=== PATIENT | female | born 1975 | race Hispanic/Latino ===

== ENCOUNTER 2019-08-25 18:08 | Inpatient (IN) | payer OTHER, SELFPAY ==
[2019-08-25] MEDS ORDERED: Azithromycin 500 MG VIAL ONE (19:07)
[2019-08-25] MEDS ORDERED: Sodium Chloride 0.9% 100 ML ONE (19:07)
[2019-08-25] MEDS ORDERED: cefTRIAXone\\ROCEPHIN 2 GM VIAL ONE (19:07)
--- NOTE | 2019-08-25 21:49 | ULT ---
LIMITED ABDOMINAL ULTRASOUND 08/25/19 PROVIDED CLINICAL HISTORY: Abdominal pain, COVID rule out. FINDINGS: Multiple gallstones are demonstrated. There is gallbladder wall thickening to approximately 3 mm. No pericholecystic fluid is evident. The sheet layer documents a positive sonographic Hankins's sign. The common duct is about 5 mm. IMPRESSION: Cholelithiasis and gallbladder wall thickening with reported positive sonographic Hankins's sign. Marquis elate with concerns for acute cholecystitis. POS: LEOLA
[2019-08-25] MEDS ORDERED: HYDROcodone/Acetaminophen 5/325 mg Tablet PO PRN (22:16)
[2019-08-25] MEDS ORDERED: Acetaminophen 325 MG TAB PO PRN (22:16)
[2019-08-25 22:25] LABS: Prothrombin Time 13.6 SEC (12.0-14.7)
[2019-08-25 22:26] LABS: D-Dimer Test 1.64 *mcg/mL (0.27-0.43)
[2019-08-25 22:36] LABS: Phosphorus 2.3 mg/dL (2.3-4.7)
--- NOTE | 2019-08-25 22:38 | PDOC.FPRHP ---
- Allergies/Adverse Reactions Allergies Allergy/AdvReac Type Severity Reaction Status Date / Time No Known Drug Allergies Allergy Unverified 08/25/19 22:24 - Home Medications Medication Instructions Recorded Confirmed Type No Known 08/25/19 08/25/19 History - History PMHx: PSHx: FHx: Social: - Vital signs BP: [] HR: [] RR: [] Tmax: [] Pox: []% on [] Wt: [] FMR H&P: Upper Level - Plan Date/Time: 08/25/192236 PCP: CC- none HPI: This is a previously healthy 43 yo F with no significant PMH being admitted for COVID r/o as well as acute cholecystitis. She states she has not been able to tolerate PO for about 6 days with persistent vomiting. She denies blood in the vomit. She gets sharp pain in her RUQ which radiates to the epigastric area at time. She ahs about 2 episodes of diarrhea per day with no dark stools or blood in the stool. States she is still tolerating liquid, she is thirsty and would like some water. She states she has never had this type of pain before. Denies chest pain, denies pain radiating to her back. The patient works at [employer] and has been continuing to work, she states she has had fever for about 3-4 days Tmax at home 102. Tmax here 99.6. She states she has had sore throat for 2-3 days which has been getting worse and causing her to have a hoarse voice. She states she has had cough for 1 days. She feels achy and tired but not really short of breath. Cough is dry and non-productive. PMH: none PSH: none Meds: none Allergies: NKDA Soc Hx: denies smoking, alcohol, or drugs Fm hx: denies family hx of heart disease REVIEW OF SYSTEMS: Gen: see hpi Neuro: denies headache Eyes: no visual changes ENT: see hpi Resp: see hpi Card: denies murmurs, rubs, gallups GI: see hpi Heme: no easy bruising/bleeding, no blood thinners Skin: no rash, no erythema Vitals: BP: 128/73, Pulse: 80, Resp: 18, Temp: 99.2 (Oral), O2 sat: 95 on ( Room Air), 72kg PHYSICAL EXAMINATION: General: NAD, alert and oriented x3 HEENT: PERRLA, EOMI, normal sclera, oropharynx without erythema or exudate Neck: Supple. Full ROM. Heart/Cardiovascular System: cap refill <2 Lungs/Respiratory System: no resp distress, hoarse voice, speaking in complete sentences, no retractions Abdomen/Gastro-Intestinal System: soft, no distension, [place] +, pain in RUQ Extremities: Warm extremities. No cyanosis or edema Neuro: No gross deficits appreciated. CN 2-12 grossly intact Psychiatry: Awake, Alert and cooperative with exam Skin: No lesions, rashes, or ulcers Musculoskeletal: Full ROM A/P: # Pneumonia 2/2 possible COVID infxn with possible superimposed bacterial PNA - COVID, bcx, procal, CRP, mag, phose, ferritin, PT/INR, Urine strep pending - LA 1.7, Pulse 70-90, WBC 9.8, Lymph 19, RR 18, SIRS not met currently - CT scan shows RML consolidation, mild bilateral lower lobe consolidation - Will cover with Zosyn for possible aspiration 2/2 vomiting, cont azithro - Room air currently, will monitor, possibly early in COVID course - Gentle fluids at 75ml/hr 2/2 not tolerating much PO # Acute Cholecystitis - CT scan shows 9mm CBD, US shows wall thickening, sludge - Surgery consulted from ED, recs cholecystectomy after eval of COVID - Zosyn, pain control (avoid NSAIDs for now, COVID r/o) Fluids: LR 75 ml/hr Code: full PPx: pepcid, lovenox Dispo: anticipate 2-3 day course Addendum - Attending - Attending Attestation Date/Time: 08/25/19 2350 I personally evaluated the patient at 2345 and discussed the management with Dr. Rangel I agree with the History, Examination, Assessment and Plan documented above with any addition or exceptions noted below. 43 yo WF with 1 wk hx of N/V. inability tolerate PO intake, fever, chills, cough , SOB, and RUQ pain. Presented for evaluation at [facility]. Found to have cholecystitis clinically and on CT. CT scan concerning for RML PNA and possible bibasilar PNA, Aspiration vs viral PNA. Sent to [facility] for admission and further evaluation. RUQ US shows cholecystitis and sludge. Labs reviewed and remarkable for mild elevation of ALT, positive D-dimer, elevated procal, mild lymphopenia, elevation of ferritin. General surgery consulted in ER. COVID screen at [facility]. Admit for acute cholecystitis, RML PNA, and possible viral/COVID vs aspiration PNA. Continue azithromyocin and zosyn. Contact/airborn precautions. IV fluids and tx of nausea and pain. inpatient, medical, >2 midnights.
[2019-08-25 23:13] VITALS: BMI 30.1
[2019-08-25] MEDS: Piperacillin/Tazobactam 3.375 GM in Sodium Chloride 0.9% 100 ML IVPB SCH (23:30)
[2019-08-25] MEDS: Lactated Ringer's 1,000 ML IV SCH (23:30)
[2019-08-26] MEDS: Morphine 4 MG/ML VIAL SLOW IVP PRN (05:30)
[2019-08-26 05:31] LABS: #Basophils 0.1 thou/uL (0.0-0.2); #Eosinphils 0.1 thou/uL (0.0-0.7); #Lymphocytes 3.1 thou/uL (1.20-3.40); #Neutrophils 6.4 thou/uL (1.40-6.50); %Basophils 0.6 % (0.0-1.0); %Eosinophils 1.1 % (0.0-10.0); %Lymphocytes 29.3 % (21.0-51.0); %Monocytes 9.3 % (0.0-10.0); %Neutrophils 59.8 % (42.0-75.0); Hemoglobin 11.8 g/dL (12.0-16.0); Mean Corpuscular HGB CONC 33.8 g/dL (32.0-36.0); Mean Corpuscular Hemoglobin 31.9 pg (27.0-31.0); Mean Corpuscular Volume 94.6 fL (78.0-98.0); Mean Platelet Volume 7.8 fL (7.4-10.4); Platelet Count 241 thou/uL (130-400); RBC Distribution Width 11.3 % (11.5-14.5); White Blood Cell (WBC) Count 10.6 thou/uL (4.8-10.8)
[2019-08-26 05:51] LABS: Anion Gap 9 mmol/L (10-20); BUN (Urea Nitrogen) 14 mg/dL (7.0-18.7); Calc. Creatinine Clearance 114 mL/min (70-130); Calcium 8.4 mg/dL (7.8-10.44); Carbon Dioxide 29 mmol/L (22-29); Chloride 106 mmol/L (98-107); Estimated GFR-MDRD 86; Glucose 101 mg/dL (70-105); Potassium 4.4 mmol/L (3.5-5.1); Sodium 140 mmol/L (136-145)
[2019-08-26] MEDS: Piperacillin/Tazobactam 3.375 GM in Sodium Chloride 0.9% 100 ML IVPB SCH ×3 (06:12→17:14)
[2019-08-26 07:26] LABS: Strep pneumo Urine Ag NEGATIVE (NEGATIVE)
[2019-08-26] MEDS: Famotidine/PF 20 mg/2ml Vial SLOW IVP SCH ×2 (07:40→20:55)
[2019-08-26] MEDS: Azithromycin 250 MG TAB PO SCH (07:40)
[2019-08-26] MEDS: Enoxaparin Sodium 40 MG/0.4 ML SYRINGE SC SCH (07:40)
[2019-08-26] MEDS: Ondansetron PF 4 MG/2 ML Vial IVP PRN ×2 (08:13→17:35)
--- NOTE | 2019-08-26 09:08 | PDOC.FM ---
- Subjective Subjective: pt feels the same as last night. stomach pain stable. cough stable, no SOB - Objective Vital Signs & Weight: Vital Signs (12 hours) Temp Pulse Resp BP BP Pulse Ox 08/26/19 08:00 97 08/26/19 07:40 97.4 F L 54 L 18 115/71 97 08/26/19 04:00 98.7 F 69 17 129/75 99 08/25/19 23:10 98.3 F 66 18 123/81 96 08/25/19 22:39 96 Weight Weight 72.348 kg Result Diagrams: 08/26/19 05:15 08/26/19 05:15 Phys Exam - Physical Examination Constitutional: NAD HEENT: moist MMs, sclera anicteric Neck: supple, full ROM Respiratory: no wheezing, clear to auscultation bilateral Cardiovascular: RRR, no significant murmur Gastrointestinal: soft RUQ ttp Musculoskeletal: pulses present Neurological: normal sensation, moves all 4 limbs Psychiatric: normal affect, A&O x 3 Skin: no rash, normal turgor Dx/Plan (1) Cholecystitis Code(s): K81.9 - CHOLECYSTITIS, UNSPECIFIED Status: Acute (2) Respiratory disease Code(s): J98.9 - RESPIRATORY DISORDER, UNSPECIFIED Status: Acute - Plan Plan: Pneumonia 2/2 possible COVID infxn with possible superimposed bacterial PNA A-stable. covid pending. SIRS criteria not met. CT scan shows RML consolidation , mild bilateral lower lobe consolidation P- zosyn and azithro -Gentle fluids at 75ml/hr 2/2 not tolerating much PO -f/u BCx -O2 as needed Acute Cholecystitis A- CT scan shows 9mm CBD, US shows wall thickening, sludge. Surgery consulted from ED, recs cholecystectomy after eval of COVID P- Zosyn, pain control (avoid NSAIDs for now, COVID r/o) Fluids: LR 75 ml/hr Code: full PPx: pepcid, lovenox
--- NOTE | 2019-08-26 11:39 | CON ---
DATE OF CONSULTATION: CHIEF COMPLAINT: Dyspnea. HISTORY OF PRESENT ILLNESS: The patient is a 43-year-old female, who has been having some nausea and vomiting, some epigastric pain and diarrhea. She has been having fever and dyspnea with cough. PAST MEDICAL HISTORY: Unremarkable. PAST SURGICAL HISTORY: None. MEDICATIONS: No medications. ALLERGIES: NO KNOWN DRUG ALLERGIES. ASSESSMENT: There is a high suspicion that this patient has COVID-19 due to imaging and symptoms. She has a normal white count. Her CT scan shows some wall thickening. PLAN: Await the COVID testing. If she is very symptomatic, I would recommend cholecystostomy tube. However, if she is cleared from COVID, then we can do a laparoscopic cholecystectomy. If not, we will treat with antibiotics and if she does not respond, then cholecystostomy tube. Job ID: [id number]
[2019-08-26] MEDS: Lactated Ringer's 1,000 ML IV SCH (12:00)
[2019-08-27] MEDS: Lactated Ringer's 1,000 ML IV SCH (00:38)
[2019-08-27] MEDS: Piperacillin/Tazobactam 3.375 GM in Sodium Chloride 0.9% 100 ML IVPB SCH ×4 (00:38→17:02)
[2019-08-27 06:53] LABS: #Basophils 0.1 thou/uL (0.0-0.2); #Eosinphils 0.2 thou/uL (0.0-0.7); #Lymphocytes 3.4 thou/uL (1.20-3.40); #Monocytes 0.7 thou/uL (0.11-0.59); #Neutrophils 5.2 thou/uL (1.40-6.50); %Basophils 0.6 % (0.0-1.0); %Eosinophils 2.4 % (0.0-10.0); %Lymphocytes 35.5 % (21.0-51.0); %Monocytes 7.2 % (0.0-10.0); %Neutrophils 54.4 % (42.0-75.0); Hemoglobin 10.9 g/dL (12.0-16.0); Mean Corpuscular HGB CONC 33.2 g/dL (32.0-36.0); Mean Corpuscular Volume 93.3 fL (78.0-98.0); Mean Platelet Volume 7.8 fL (7.4-10.4); Platelet Count 257 thou/uL (130-400); RBC Distribution Width 11.2 % (11.5-14.5); Red Blood Cell (RBC) Count 3.52 mill/uL (4.20-5.40); White Blood Cell (WBC) Count 9.6 thou/uL (4.8-10.8)
[2019-08-27 07:25] LABS: ALT (SGPT) 74 U/L (8-55); AST (SGOT) 58 U/L (5-34); Albumin 2.9 g/dL (3.5-5.0); Alkaline Phosphatase 124 U/L (40-110); Anion Gap 11 mmol/L (10-20); BUN (Urea Nitrogen) 8 mg/dL (7.0-18.7); Bilirubin, Total 0.5 mg/dL (0.2-1.2); CRP (Inflammatory) 4.97 mg/dL (= or < 0.5); Calc. Creatinine Clearance 114 mL/min (70-130); Calcium 8.7 mg/dL (7.8-10.44); Carbon Dioxide 28 mmol/L (22-29); Chloride 105 mmol/L (98-107); Estimated GFR-MDRD 86; Glucose 100 mg/dL (70-105); Phosphorus 3.6 mg/dL (2.3-4.7); Potassium 3.5 mmol/L (3.5-5.1); Protein, Total 5.9 g/dL (6.0-8.3); Sodium 140 mmol/L (136-145)
[2019-08-27] MEDS: Enoxaparin Sodium 40 MG/0.4 ML SYRINGE SC SCH (08:59)
[2019-08-27] MEDS: Famotidine/PF 20 mg/2ml Vial SLOW IVP SCH ×2 (08:59→21:07)
[2019-08-27] MEDS: Azithromycin 250 MG TAB PO SCH (08:59)
--- NOTE | 2019-08-27 09:24 | PRG ---
DATE OF SERVICE: 08/27/2019 SUBJECTIVE: The patient is still under suspicion of COVID-19 infection. I spoke to the nurse. She is feeling pretty good. She is no longer vomiting. She is tolerating diet. OBJECTIVE: VITAL SIGNS: Her temperature is 97.6, pulse 58, and blood pressure 108/60. ASSESSMENT: Cholelithiasis with suspected COVID pneumonia. PLAN: Await test results. If the COVID-19 results are negative, we will require laparoscopic cholecystectomy with cholangiogram. If they are positive, depending on symptoms, may require a cholecystostomy tube. Job ID: [id number]
--- NOTE | 2019-08-27 09:51 | PDOC.FM ---
- Subjective Subjective: doing well, n/v is almost resolved, abdominal pain improved as well. no new complaints - Objective Vital Signs & Weight: Vital Signs (12 hours) Temp Pulse Resp BP Pulse Ox 08/27/19 05:36 97.6 F 58 L 18 108/60 95 08/27/19 01:00 97.8 F 68 16 98/64 96 Weight Weight 72.348 kg I&O: 08/26/19 08/27/19 08/28/19 06:59 06:59 06:59 Intake Total 2014 Output Total 1000 Balance 1015 Result Diagrams: 08/27/19 06:11 08/27/19 06:11 Phys Exam - Physical Examination Constitutional: NAD HEENT: moist MMs, sclera anicteric Neck: supple, full ROM Respiratory: no wheezing, clear to auscultation bilateral Cardiovascular: RRR, no significant murmur Gastrointestinal: soft, non-tender Musculoskeletal: no edema, pulses present Neurological: normal sensation, moves all 4 limbs Psychiatric: normal affect, A&O x 3 Skin: no rash, normal turgor Dx/Plan (1) Cholecystitis Code(s): K81.9 - CHOLECYSTITIS, UNSPECIFIED Status: Acute (2) Respiratory disease Code(s): J98.9 - RESPIRATORY DISORDER, UNSPECIFIED Status: Acute - Plan Plan: Pneumonia 2/2 possible COVID infxn with possible superimposed bacterial PNA A-stable. covid pending. SIRS criteria not met. CT scan shows RML consolidation , mild bilateral lower lobe consolidation. Fever since 4/3, cough since 4/6 P- zosyn and azithro -Gentle fluids at 75ml/hr 2/2 not tolerating much PO. will wean as tolerated -f/u BCx -O2 as needed Acute Cholecystitis A- CT scan shows 9mm CBD, US shows wall thickening, sludge. Surgery consulted. likely will have it taken out outpt P- Zosyn, pain control (avoid NSAIDs for now, COVID r/o) Fluids: LR 75 ml/hr Code: full PPx: pepcid, lovenox
[2019-08-27] MEDS: Ondansetron PF 4 MG/2 ML Vial IVP PRN ×2 (10:10→19:31)
[2019-08-27] MEDS: Morphine 4 MG/ML VIAL SLOW IVP PRN ×2 (10:16→17:48)
[2019-08-27] MEDS: Ondansetron ODT 4 MG TAB PO PRN (21:08)
[2019-08-28] MEDS: Piperacillin/Tazobactam 3.375 GM in Sodium Chloride 0.9% 100 ML IVPB SCH ×5 (00:55→23:54)
[2019-08-28] MEDS: Morphine 4 MG/ML VIAL SLOW IVP PRN ×2 (02:15→06:38)
[2019-08-28 07:25] LABS: #Basophils 0.2 thou/uL (0.0-0.2); #Eosinphils 0.3 thou/uL (0.0-0.7); #Lymphocytes 4.1 thou/uL (1.20-3.40); #Monocytes 0.6 thou/uL (0.11-0.59); #Neutrophils 4.1 thou/uL (1.40-6.50); %Basophils 2.3 % (0.0-1.0); %Eosinophils 3.6 % (0.0-10.0); %Lymphocytes 43.7 % (21.0-51.0); %Monocytes 6.3 % (0.0-10.0); %Neutrophils 44.1 % (42.0-75.0); Hemoglobin 11.6 g/dL (12.0-16.0); Mean Corpuscular HGB CONC 34.6 g/dL (32.0-36.0); Mean Corpuscular Hemoglobin 32.3 pg (27.0-31.0); Mean Corpuscular Volume 93.4 fL (78.0-98.0); Mean Platelet Volume 7.4 fL (7.4-10.4); Platelet Count 288 thou/uL (130-400); RBC Distribution Width 11.2 % (11.5-14.5); Red Blood Cell (RBC) Count 3.59 mill/uL (4.20-5.40); White Blood Cell (WBC) Count 9.4 thou/uL (4.8-10.8)
[2019-08-28 07:46] LABS: ALT (SGPT) 49 U/L (8-55); AST (SGOT) 16 U/L (5-34); Alkaline Phosphatase 98 U/L (40-110); Anion Gap 11 mmol/L (10-20); BUN (Urea Nitrogen) 5 mg/dL (7.0-18.7); Bilirubin, Total 0.4 mg/dL (0.2-1.2); Calc. Creatinine Clearance 117 mL/min (70-130); Calcium 8.8 mg/dL (7.8-10.44); Carbon Dioxide 31 mmol/L (22-29); Chloride 101 mmol/L (98-107); Estimated GFR-MDRD 89; Globulin 3.1 g/dL (2.4-3.5); Glucose 103 mg/dL (70-105); Potassium 3.3 mmol/L (3.5-5.1); Protein, Total 6.1 g/dL (6.0-8.3); Sodium 140 mmol/L (136-145)
[2019-08-28 07:47] LABS: Phosphorus 4.4 mg/dL (2.3-4.7)
[2019-08-28] MEDS: Famotidine/PF 20 mg/2ml Vial SLOW IVP SCH ×2 (07:54→20:03)
[2019-08-28] MEDS: Azithromycin 250 MG TAB PO SCH (07:55)
[2019-08-28] MEDS: Enoxaparin Sodium 40 MG/0.4 ML SYRINGE SC SCH (07:55)
[2019-08-28] MEDS ORDERED: Potassium Chloride 20 MEQ TAB PO SCH (09:00)
--- NOTE | 2019-08-28 09:09 | PDOC.FM ---
- Subjective Subjective: reports continued and worsened abdominal pain, nausea/vomiting persists. Pt failed PO challenge yesterday. - Objective Vital Signs & Weight: Vital Signs (12 hours) Temp Pulse Resp BP Pulse Ox 08/28/19 06:35 61 112/74 95 08/28/19 01:00 97.3 F L 54 L 16 107/67 96 Weight Admit Weight 72.348 kg Weight 72.348 kg I&O: 08/27/19 08/28/19 08/29/19 06:59 06:59 06:59 Intake Total 2014 1899 Output Total 999 Balance 1014 1899 Result Diagrams: 08/28/19 06:54 08/28/19 06:54 Phys Exam - Physical Examination Constitutional: NAD HEENT: moist MMs, sclera anicteric Neck: no JVD, supple Respiratory: no wheezing, clear to auscultation bilateral Cardiovascular: RRR, no significant murmur moderate TTP in RUQ, mild guarding Musculoskeletal: pulses present Neurological: normal sensation, moves all 4 limbs Psychiatric: normal affect, A&O x 3 Skin: no rash, normal turgor Dx/Plan (1) Cholecystitis Code(s): K81.9 - CHOLECYSTITIS, UNSPECIFIED Status: Acute (2) CAP (community acquired pneumonia) Code(s): J18.9 - PNEUMONIA, UNSPECIFIED ORGANISM Status: Acute (3) Severe malnutrition Code(s): E43 - UNSPECIFIED SEVERE PROTEIN-CALORIE MALNUTRITION Status: Acute - Plan Plan: Community Acquired Pneumonia A- Pt remains stable on RA since admission, COVID negative. CT scan shows RML consolidation, mild bilateral lower lobe consolidation. Fever since 08/20, cough since 08/23 P- zosyn and azithro -Gentle fluids at 75ml/hr / not tolerating much PO. will wean as tolerated -O2 as needed -DC droplet precautions and covid labs Acute Cholecystitis A- CT scan shows 9mm CBD, US shows wall thickening, sludge. Surgery consulted. likely will have it taken out outpt P- Zosyn, pain control (avoid NSAIDs for now, COVID r/o) -f/u surgery recs Severe malnutrition A- no solids tolerated since 08/15. malnutrition present on admission. Dietary consulted, appreciate recs P- will add ensure clear once pt has had surgical eval -partial parental nutrition Fluids: LR 75 ml/hr Code: full PPx: pepcid, lovenox
--- NOTE | 2019-08-28 10:19 | HP ---
HISTORY OF PRESENT ILLNESS: The patient apparently has results of her COVID test, which were negative per Dr. Sharp in Internal Medicine. She is a 43-year-old female with a 1-week history of right upper quadrant pain, fever, cough, COVID test now negative. She did have a right middle lobe pneumonia as well. PAST MEDICAL HISTORY: Unremarkable. PAST SURGICAL HISTORY: None. MEDICATIONS: No medications. ALLERGIES: NO KNOWN DRUG ALLERGIES. SOCIAL HISTORY: She is . No tobacco or alcohol. She works at [employer]. FAMILY HISTORY: Noncontributory. PHYSICAL EXAMINATION: VITAL SIGNS: Temperature 97.3, pulse 61, blood pressure 112/74. GENERAL: She is awake, alert, in no apparent distress. HEENT: No jaundice. LUNGS: Clear. HEART: Regular rate and rhythm. ABDOMEN: Tender in the right upper quadrant. No palpable masses. EXTREMITIES: Unremarkable. LABORATORY DATA: White count 9.4, hemoglobin and hematocrit are 11 and 33, platelet count 288. Electrolytes are fine. LFTs are currently normal. Ultrasound showed some wall thickening, gallstones, and common bile duct was 5 mm. ASSESSMENT: Acute cholecystitis. PLAN: Laparoscopic cholecystectomy. CONSENT: I have discussed planned procedure as well as risk of bleeding, infection, injury to bowel or bile duct, need to open. She understands and gives informed consent. Job ID: [id number]
[2019-08-28] MEDS ORDERED: Ondansetron PF 4 MG/2 ML Vial ONE (11:38)
[2019-08-28] MEDS ORDERED: Dexamethasone 20 MG/5 ML VIAL ONE (11:38)
[2019-08-28] MEDS ORDERED: PROPOFOL 200 MG/20 ML VIAL ONE (11:38)
[2019-08-28] MEDS ORDERED: Ketorolac Tromethamine 30 MG/ML VIAL ONE (11:38)
[2019-08-28] MEDS ORDERED: Rocuronium Bromide 10 MG/ML (10ML VIAL) ONE (11:38)
[2019-08-28] MEDS ORDERED: Lidocaine 1% PF 5 ML VIAL ONE (11:38)
[2019-08-28] MEDS ORDERED: Glycopyrrolate 0.2 MG/ML 5 ML SYRINGE ONE (11:38)
[2019-08-28] MEDS ORDERED: Succinylcholine Chloride 20 MG/ML 10 ml SYRINGE FS ONE (11:38)
[2019-08-28] MEDS ORDERED: Sodium Chloride 0.9% 10 ML ONE (12:23)
[2019-08-28] MEDS ORDERED: Bupivacaine 0.25% HCL 30 ML VIAL ONE (13:17)
[2019-08-28] MEDS ORDERED: Lidocaine 1% w/Epinephrine 1:100K 20 ML VIAL ONE (13:17)
[2019-08-28] MEDS ORDERED: Iothalamate Meglumine 60% 50 ML VIAL FS ONE (13:26)
[2019-08-28] MEDS ORDERED: Fentanyl 100 MCG/2 ML VIAL ONE ×3 (13:27→15:15)
[2019-08-28] MEDS ORDERED: Ondansetron HCl/PF 4 MG/2 ML Vial IVP PRN (14:58)
[2019-08-28] MEDS ORDERED: Promethazine HCl 25 MG/ML VIAL IM PRN ×2 (14:58→15:02)
[2019-08-28] MEDS ORDERED: Promethazine HCl 25 MG/ML VIAL SLOW IVP PRN (14:58)
[2019-08-28] MEDS ORDERED: Mag-Al 1200 mg/1200 mg/30 ML UDCUP PO PRN (15:02)
[2019-08-28] MEDS ORDERED: Morphine 4 MG/ML VIAL SLOW IVP PRN (15:02)
[2019-08-28] MEDS ORDERED: Calcium Carbonate 500 MG ChewTAB PO PRN (15:02)
[2019-08-28] MEDS ORDERED: Dextrose 50% Abboject 50 ML SYRINGE SLOW IVP PRN (15:02)
[2019-08-28] MEDS ORDERED: Morphine 2 MG/ML SYRINGE SLOW IVP PRN (15:02)
[2019-08-28] MEDS ORDERED: Dextrose 5% in Water 1,000 ML IV PRN (15:02)
[2019-08-28] MEDS ORDERED: hydrALAZINE 20 MG/ML VIAL SLOW IVP PRN (15:02)
[2019-08-28] MEDS ORDERED: Ondansetron PF 4 MG/2 ML Vial IVP PRN (15:02)
--- NOTE | 2019-08-28 16:40 | OP ---
DATE OF PROCEDURE: 08/28/2019 PREOPERATIVE DIAGNOSIS: Acute cholecystitis. PROCEDURE PERFORMED: Laparoscopic cholecystectomy. INDICATIONS: A 43-year-old female, admitted on Saturday with severe right upper quadrant pain. She was also having cough, fever, dyspnea, and a CT showing pneumonia, so there was high suspicion for COVID-19. She was treated with antibiotics for her gallbladder and her pneumonia until the test came back this morning, negative. FINDINGS: She had a gangrenous gallbladder, very inflamed. DESCRIPTION OF PROCEDURE: After informed consent was obtained, the patient was taken to the operating room and given general endotracheal anesthesia, placed in the supine position. Abdomen was prepped and draped in usual fashion. Local anesthesia infiltrated subcutaneously and deep. A subumbilical incision was performed, subcu divided sharply. The fascia was grasped, 2 stay sutures of 0 Vicryl placed in either side of midline. Midline incised. Digital palpation revealed no local adhesions. A blunt 12 mm trocar inserted. Pneumoperitoneum was created to a pressure of 15 mmHg. 0 degree laparoscope inserted under direct vision, three 5 mm ports were placed subcostally. The gallbladder was very inflamed, encased in omentum. The omentum was able to be taken down using blunt dissection to allow grasping of the gallbladder, which was advanced superior, it was necrotic. Distally, it was very tedious dissection. I was able to find the cystic duct. It was really short, probably about 3 mm in length. I was able to put clips on that, cut it. The artery was triply ligated and divided. The gallbladder removed from its fossa utilizing electrocautery. The posterior wall was necrotic, so part of the posterior wall was left on to the liver bed. The gallbladder was placed in an endosac, removed from the abdomen in the endosac. Hemostasis assured with electrocautery and Abe powder. A drain was placed and brought out through the lateral-most incision. Hemostasis was assured. Trocars and retractors removed. The fascia closed with interrupted 0 Vicryl suture. The skin closed with interrupted 4-0 Rapide. Dermabond applied. The patient tolerated the procedure well, transferred to Recovery in good condition. Sponge and needle count verified correct x2. Job ID: [id number]
[2019-08-28] MEDS: Lactated Ringer's 1,000 ML IV SCH ×2 (17:26→23:55)
[2019-08-28] MEDS: Ketorolac Tromethamine 30 MG/ML VIAL IVP SCH ×2 (17:27→23:56)
[2019-08-28] MEDS: Famotidine 20 MG TAB PO SCH (20:02)
[2019-08-28] MEDS: HYDROcodone/Acetaminophen 10/325 mg Tablet PO PRN (20:04)
[2019-08-29] MEDS: Piperacillin/Tazobactam 3.375 GM in Sodium Chloride 0.9% 100 ML IVPB SCH ×3 (05:13→16:54)
[2019-08-29] MEDS: Ketorolac Tromethamine 30 MG/ML VIAL IVP SCH ×3 (05:15→16:53)
[2019-08-29] MEDS: Lactated Ringer's 1,000 ML IV SCH ×2 (06:06→12:53)
[2019-08-29 06:07] LABS: #Basophils 0.2 thou/uL (0.0-0.2); #Eosinphils 0.1 thou/uL (0.0-0.7); #Lymphocytes 2.7 thou/uL (1.20-3.40); #Monocytes 0.7 thou/uL (0.11-0.59); #Neutrophils 9.3 thou/uL (1.40-6.50); %Basophils 1.3 % (0.0-1.0); %Eosinophils 0.4 % (0.0-10.0); %Lymphocytes 21.1 % (21.0-51.0); %Monocytes 5.2 % (0.0-10.0); %Neutrophils 72.1 % (42.0-75.0); Hemoglobin 9.2 g/dL (12.0-16.0); Mean Corpuscular HGB CONC 34.3 g/dL (32.0-36.0); Mean Corpuscular Hemoglobin 32.1 pg (27.0-31.0); Mean Corpuscular Volume 93.6 fL (78.0-98.0); Mean Platelet Volume 7.3 fL (7.4-10.4); Platelet Count 316 thou/uL (130-400); Red Blood Cell (RBC) Count 2.86 mill/uL (4.20-5.40); White Blood Cell (WBC) Count 12.9 thou/uL (4.8-10.8)
[2019-08-29 06:34] LABS: ALT (SGPT) 66 U/L (8-55); AST (SGOT) 46 U/L (5-34); Albumin 2.9 g/dL (3.5-5.0); Alkaline Phosphatase 76 U/L (40-110); Anion Gap 9 mmol/L (10-20); BUN (Urea Nitrogen) 7 mg/dL (7.0-18.7); Bilirubin, Total 0.5 mg/dL (0.2-1.2); Calc. Creatinine Clearance 136 mL/min (70-130); Calcium 8.2 mg/dL (7.8-10.44); Carbon Dioxide 30 mmol/L (22-29); Chloride 102 mmol/L (98-107); Estimated GFR-MDRD Greater than 90; Globulin 2.4 g/dL (2.4-3.5); Glucose 109 mg/dL (70-105); Potassium 4.1 mmol/L (3.5-5.1); Protein, Total 5.3 g/dL (6.0-8.3); Sodium 137 mmol/L (136-145)
--- NOTE | 2019-08-29 07:50 | PDOC.FM ---
- Subjective Subjective: Pt reports original pain much improved but does complain of pain at L upper abdomen surgical site. She is tolerating clear liquid diet without any n/v. She has not yet passed gas. She is ambulating well on her own. - Objective MAR Reviewed: Yes Vital Signs & Weight: Vital Signs (12 hours) Temp Pulse Resp BP Pulse Ox 08/29/19 07:32 98.3 F 75 18 113/71 93 L 08/29/19 05:17 97 08/29/19 04:52 97.2 F L 63 18 111/72 94 L 08/29/19 00:03 97.8 F 78 18 103/68 91 L 08/28/19 19:46 97.8 F 63 18 111/72 98 Weight Admit Weight 72.348 kg Weight 72.348 kg I&O: 08/28/19 08/29/19 08/30/19 06:59 06:59 06:59 Intake Total 1900 2950 Output Total 84 Balance 1900 2866 Result Diagrams: 08/29/19 05:51 08/29/19 05:51 Phys Exam - Physical Examination Constitutional: NAD HEENT: moist MMs Respiratory: no wheezing, no rales, no rhonchi, clear to auscultation bilateral Cardiovascular: RRR, no significant murmur Gastrointestinal: soft, positive bowel sounds appropriately tender to palpation Musculoskeletal: no edema, pulses present Psychiatric: normal affect, A&O x 3 Deviation from normal: IRINEO drain in place with serosanguinous fluid, surgical site c, d, i Dx/Plan (1) CAP (community acquired pneumonia) Code(s): J18.9 - PNEUMONIA, UNSPECIFIED ORGANISM Status: Acute (2) Cholecystitis Code(s): K81.9 - CHOLECYSTITIS, UNSPECIFIED Status: Acute (3) Severe malnutrition Code(s): E43 - UNSPECIFIED SEVERE PROTEIN-CALORIE MALNUTRITION Status: Acute - Plan Plan: Community Acquired Pneumonia A- Pt remains stable on RA since admission, COVID negative. CT scan shows RML consolidation, mild bilateral lower lobe consolidation. Afebrile over the last 24h. P- Day 5 of Zosyn and Azithro Acute Cholecystitis s/p Cholecystectomy, POD#1 A- CT scan showed 9mm CBD, US shows wall thickening, sludge. Gangrenous GB removed by Franco per notes. P- Likely d/c Zosyn today, pending surgery recs, advance diet Severe malnutrition A- no solids tolerated since 08/15. malnutrition present on admission. Dietary consulted, appreciate recs P- add ensure clear today. Tolerating clear liquid diet. Fluids: LR 75 ml/hr Code: full PPx: pepcid, lovenox
[2019-08-29] MEDS: Enoxaparin Sodium 30 MG/0.3 ML SYRINGE SC SCH (08:08)
[2019-08-29] MEDS: Azithromycin 250 MG TAB PO SCH (08:08)
[2019-08-29] MEDS: Famotidine 20 MG TAB PO SCH ×2 (08:08→20:24)
[2019-08-29] MEDS: HYDROcodone/Acetaminophen 10/325 mg Tablet PO PRN ×2 (08:10→16:53)
[2019-08-29] MEDS: Famotidine/PF 20 mg/2ml Vial SLOW IVP SCH ×2 (08:17→20:19)
--- NOTE | 2019-08-29 15:31 | PDOC.GSPN ---
Surgery Progress Note: Subj - Subjective Narrative: Patient is status post laparoscopic cholecystectomy and drain placement for gangrenous cholecystitis yesterday by Dr. Gamez. The patient is feeling much better today with only minimal postoperative pain. She is tolerating her liquid diet. She has not passed any gas yet. Her labs and vitals look okay. Her abdomen is soft with appropriate postoperative tenderness. Her incisions look good. Her drain has bloody nonbilious drainage. Assessment/plan: Status post laparoscopic cholecystectomy for gangrenous cholecystitis. Doing well. Gram-negative rods from bile with final ID and sensitivities pending. Continue antibiotics and drain. Advance diet as tolerated. Surgery Progress Note: Obj - Vital signs Vital signs: Vital Signs - Most Recent Temp Pulse Resp BP Pulse Ox 98.8 F 72 18 99/63 92 L 08/29/19 12:00 08/29/19 12:00 08/29/19 12:00 08/29/19 12:00 08/29/19 12:00 Surgery Progress Note: Results - Labs Result Diagrams: 08/29/19 05:51 08/29/19 05:51 Lab results: Laboratory Results - last 24 hr 08/29/19 08/29/19 08/29/19 05:51 05:51 05:51 WBC 12.9 H RBC 2.86 L Hgb 9.2 L Hct 26.8 L MCV 93.6 MCH 32.1 H MCHC 34.3 RDW 11.0 L Plt Count 316 MPV 7.3 L Neutrophils % 72.1 Lymphocytes % 21.1 Monocytes % 5.2 Eosinophils % 0.4 Basophils % 1.3 H Neutrophils # 9.3 H Lymphocytes # 2.7 Monocytes # 0.7 H Eosinophils # 0.1 Basophils # 0.2 Sodium 137 Potassium 4.1 Chloride 102 Carbon Dioxide 30 H Anion Gap 9 L BUN 7 Creatinine 0.62 Estimated GFR (MDRD) Greater than 90 Glucose 109 H Calcium 8.2 Total Bilirubin 0.5 AST 46 H ALT 66 H Alkaline Phosphatase 76 Serum Total Protein 5.3 L Albumin 2.9 L Globulin 2.4 Albumin/Globulin Ratio 1.2 Procalcitonin 0.14
[2019-08-30] MEDS: Piperacillin/Tazobactam 3.375 GM in Sodium Chloride 0.9% 100 ML IVPB SCH ×5 (00:31→23:14)
[2019-08-30] MEDS: Lactated Ringer's 1,000 ML IV SCH ×4 (00:31→20:26)
[2019-08-30] MEDS: Ketorolac Tromethamine 30 MG/ML VIAL IVP SCH ×5 (00:32→23:14)
[2019-08-30] MEDS: HYDROcodone/Acetaminophen 10/325 mg Tablet PO PRN ×2 (00:32→06:09)
[2019-08-30 05:51] LABS: #Basophils 0.1 thou/uL (0.0-0.2); #Eosinphils 0.5 thou/uL (0.0-0.7); #Lymphocytes 3.8 thou/uL (1.20-3.40); #Monocytes 0.6 thou/uL (0.11-0.59); #Neutrophils 4.7 thou/uL (1.40-6.50); %Basophils 0.8 % (0.0-1.0); %Lymphocytes 39.4 % (21.0-51.0); %Monocytes 5.7 % (0.0-10.0); Hemoglobin 7.6 g/dL (12.0-16.0); Mean Corpuscular Hemoglobin 32.2 pg (27.0-31.0); Mean Corpuscular Volume 94.6 fL (78.0-98.0); Mean Platelet Volume 7.4 fL (7.4-10.4); Platelet Count 307 thou/uL (130-400); RBC Distribution Width 11.5 % (11.5-14.5); Red Blood Cell (RBC) Count 2.36 mill/uL (4.20-5.40); White Blood Cell (WBC) Count 9.6 thou/uL (4.8-10.8)
[2019-08-30 06:06] LABS: ALT (SGPT) 72 U/L (8-55); AST (SGOT) 49 U/L (5-34); Albumin 2.6 g/dL (3.5-5.0); Alkaline Phosphatase 66 U/L (40-110); Anion Gap 9 mmol/L (10-20); BUN (Urea Nitrogen) 6 mg/dL (7.0-18.7); Bilirubin, Total 0.4 mg/dL (0.2-1.2); Calc. Creatinine Clearance 130 mL/min (70-130); Calcium 8.2 mg/dL (7.8-10.44); Carbon Dioxide 30 mmol/L (22-29); Chloride 105 mmol/L (98-107); Estimated GFR-MDRD Greater than 90; Globulin 2.5 g/dL (2.4-3.5); Glucose 92 mg/dL (70-105); Potassium 3.8 mmol/L (3.5-5.1); Protein, Total 5.1 g/dL (6.0-8.3); Sodium 140 mmol/L (136-145)
--- NOTE | 2019-08-30 08:02 | PDOC.FM ---
- Subjective Subjective: Patient placed on NC overnight but turned off during exam and breathing well without distress. Did report nausea and barely able to tolerate liquid diet 2/2 this. Ambulating normally. Had a BM yesterday. - Objective MAR Reviewed: Yes Vital Signs & Weight: Vital Signs (12 hours) Temp Pulse Resp BP Pulse Ox 08/30/19 07:12 97.8 F 59 L 18 99/63 96 08/30/19 03:45 97.1 F L 56 L 18 100/65 100 08/30/19 01:20 93 L 08/30/19 00:03 97.6 F 81 18 104/63 93 L 08/29/19 21:10 88 18 96 08/29/19 20:00 98.7 F 96 18 96/60 91 L Weight Admit Weight 72.348 kg Weight 72.348 kg I&O: 08/29/19 08/30/19 08/31/19 06:59 06:59 06:59 Intake Total 2950 1880 Output Total 84 295 Balance 2866 1585 Result Diagrams: 08/30/19 05:15 08/30/19 05:15 Phys Exam - Physical Examination Constitutional: NAD HEENT: moist MMs Neck: supple, full ROM Respiratory: clear to auscultation bilateral Cardiovascular: RRR, no significant murmur Gastrointestinal: soft, no distention, positive bowel sounds appropriately tender Neurological: non-focal, moves all 4 limbs Psychiatric: normal affect, A&O x 3 Deviation from normal: incision sites clean, dry & intact -: drain in place with minimal serosanguinous output noted Dx/Plan (1) CAP (community acquired pneumonia) Code(s): J18.9 - PNEUMONIA, UNSPECIFIED ORGANISM Status: Acute (2) Cholecystitis Code(s): K81.9 - CHOLECYSTITIS, UNSPECIFIED Status: Acute - Plan Plan: Community Acquired Pneumonia - Pt was placed on NC overnight but had no respiratory complaints on exam this AM. COVID negative. - CT scan in [place] showed a RML consolidation & mild bilateral lower lobe consolidation. Has been afebrile over the last 48h. - Day 6 of Zosyn & s/p full course of azithromycin. Acute Cholecystitis s/p Cholecystectomy, POD#2 - CT scan showed 9mm CBD, US shows wall thickening, sludge. Gangrenous GB removed by Franco. - Likely d/c Zosyn today, pending surgery recs. Will continue advance diet as tolerated. Severe malnutrition - No solids tolerated since 08/15. malnutrition present on admission. Dietary consulted, appreciate recs. - Somewhat tolerating clear liquid diet. Fluids: LR @ 120 ml/hr Code: full PPx: pepcid, lovenox
[2019-08-30] MEDS: Enoxaparin Sodium 30 MG/0.3 ML SYRINGE SC SCH (08:22)
[2019-08-30] MEDS: Famotidine 20 MG TAB PO SCH ×2 (08:23→20:19)
[2019-08-30] MEDS: Ondansetron ODT 4 MG TAB PO PRN (08:24)
[2019-08-30] MEDS: Famotidine/PF 20 mg/2ml Vial SLOW IVP SCH (08:34)
--- NOTE | 2019-08-30 16:20 | PDOC.GSPN ---
Surgery Progress Note: Subj - Subjective Narrative: When I saw the patient this morning she had just had a bout of nausea and vomiting. She states that she believes this was due to the pain medication that she took. She had been tolerating her diet up to that point. She has not had any fevers and her pain has been fairly tolerable. On examination she has appropriate postoperative tenderness. The drainage from her IRINEO is less bloody today than it was yesterday with clearing of the color; it is more serosanguineous today. No bilious tinge. Her incisions look good. Her white count has normalized but her H&H are down, consistent with bleeding from the liver bed due to her gangrenous cholecystitis. LFTs are still mildly elevated. Assessment/plan: Gangrenous cholecystitis doing reasonably well. She has E. coli growing from her gallbladder cultures which is sensitive to everything but quinolones. She is on Zosyn which should cover this. Her IRINEO drainage was frankly bloody yesterday but this is clearing and I do not believe that she is actively bleeding. Her H&H did drop but she is not very symptomatic from this so we will continue to monitor it. Nausea and vomiting most likely due to oral pain medication. She was encouraged to take her pain medication with food or to request a nausea medication with it. Continue IV antibiotics and advance diet and activities as tolerated. Surgery Progress Note: Obj - Vital signs Vital signs: Vital Signs - Most Recent Temp Pulse Resp BP Pulse Ox 97.9 F 78 18 108/68 95 08/30/19 10:53 08/30/19 10:53 08/30/19 10:53 08/30/19 10:53 08/30/19 10:53 Surgery Progress Note: Results - Labs Result Diagrams: 08/30/19 05:15 08/30/19 05:15 Lab results: Laboratory Results - last 24 hr 08/30/19 08/30/19 05:15 05:15 WBC 9.6 RBC 2.36 L Hgb 7.6 L Hct 22.3 L MCV 94.6 MCH 32.2 H MCHC 34.0 RDW 11.5 Plt Count 307 MPV 7.4 Neutrophils % 49.0 Lymphocytes % 39.4 Monocytes % 5.7 Eosinophils % 5.0 Basophils % 0.8 Neutrophils # 4.7 Lymphocytes # 3.8 H Monocytes # 0.6 H Eosinophils # 0.5 Basophils # 0.1 Sodium 140 Potassium 3.8 Chloride 105 Carbon Dioxide 30 H Anion Gap 9 L BUN 6 L Creatinine 0.65 Estimated GFR (MDRD) Greater than 90 Glucose 92 Calcium 8.2 Total Bilirubin 0.4 AST 49 H ALT 72 H Alkaline Phosphatase 66 Serum Total Protein 5.1 L Albumin 2.6 L Globulin 2.5 Albumin/Globulin Ratio 1.0 L
[2019-08-31] MEDS: Piperacillin/Tazobactam 3.375 GM in Sodium Chloride 0.9% 100 ML IVPB SCH ×2 (05:29→12:33)
[2019-08-31] MEDS: Lactated Ringer's 1,000 ML IV SCH (05:30)
[2019-08-31] MEDS: Ketorolac Tromethamine 30 MG/ML VIAL IVP SCH ×2 (05:30→12:33)
[2019-08-31 05:44] LABS: #Basophils 0.1 thou/uL (0.0-0.2); #Eosinphils 0.5 thou/uL (0.0-0.7); #Lymphocytes 3.9 thou/uL (1.20-3.40); #Monocytes 0.6 thou/uL (0.11-0.59); #Neutrophils 5.2 thou/uL (1.40-6.50); %Basophils 0.9 % (0.0-1.0); %Eosinophils 4.4 % (0.0-10.0); %Monocytes 5.7 % (0.0-10.0); ALT (SGPT) 64 U/L (8-55); AST (SGOT) 24 U/L (5-34); Alkaline Phosphatase 74 U/L (40-110); Anion Gap 12 mmol/L (10-20); BUN (Urea Nitrogen) 5 mg/dL (7.0-18.7); Bilirubin, Total 0.5 mg/dL (0.2-1.2); Calc. Creatinine Clearance 124 mL/min (70-130); Calcium 8.8 mg/dL (7.8-10.44); Carbon Dioxide 28 mmol/L (22-29); Chloride 106 mmol/L (98-107); Estimated GFR-MDRD Greater than 90; Globulin 2.5 g/dL (2.4-3.5); Glucose 100 mg/dL (70-105); Hemoglobin 8.5 g/dL (12.0-16.0); Mean Corpuscular HGB CONC 33.5 g/dL (32.0-36.0); Mean Corpuscular Hemoglobin 32.1 pg (27.0-31.0); Mean Corpuscular Volume 95.8 fL (78.0-98.0); Mean Platelet Volume 6.8 fL (7.4-10.4); Platelet Count 415 thou/uL (130-400); Potassium 4.1 mmol/L (3.5-5.1); Protein, Total 5.5 g/dL (6.0-8.3); RBC Distribution Width 12.5 % (11.5-14.5); Red Blood Cell (RBC) Count 2.63 mill/uL (4.20-5.40); Sodium 142 mmol/L (136-145); White Blood Cell (WBC) Count 10.3 thou/uL (4.8-10.8)
--- NOTE | 2019-08-31 06:59 | PDOC.FM ---
- Subjective Subjective: Patient sitting up in bed awaiting breakfast. She reports mild dry cough. Pain well controlled. Ambulating, urinating well with normal BM. Notes she is tolerating liquids well, last night had crackers and salad without N but did receive medication. - Objective Vital Signs & Weight: Vital Signs (12 hours) Temp Pulse Resp BP Pulse Ox 08/31/19 04:46 98.3 F 74 16 117/79 94 L 08/31/19 02:59 100 Weight Admit Weight 72.348 kg Weight 72.348 kg I&O: 08/29/19 08/30/19 08/31/19 06:59 06:59 06:59 Intake Total 2950 1880 4400 Output Total 84 295 150 Balance 2866 1585 4250 Result Diagrams: 08/31/19 05:10 08/31/19 05:10 Phys Exam - Physical Examination Constitutional: NAD Respiratory: clear to auscultation bilateral Cardiovascular: RRR, no significant murmur Gastrointestinal: soft, positive bowel sounds (incisions healing well, drain in place with serosanguinous fluid) Musculoskeletal: no edema Neurological: non-focal Psychiatric: normal affect Skin: normal turgor Dx/Plan - Plan Plan: Acute Cholecystitis s/p Cholecystectomy, POD#3 - CT scan showed 9mm CBD, US shows wall thickening, sludge. Gangrenous GB removed by Franco. Drain in place with serosanguinous fluid, output decreasing. - Cont IV abx per surgery recs. Will continue advance diet as tolerated. Discontinued IVF this am. Community Acquired Pneumonia, resolved - Pt was placed on NC overnight but had no respiratory complaints on exam this AM. COVID negative. - CT scan in [place] showed a RML consolidation & mild bilateral lower lobe consolidation. Has been afebrile over the last 48h. - Day 7 of Zosyn & s/p full course of azithromycin. Severe malnutrition - Now tolerating some solids. malnutrition present on admission. Dietary consulted, appreciate recs. Fluids: SL Code: full PPx: pepcid, lovenox Dispo: pending surgery recs Addendum - Attending - Attending Attestation Date/Time: 08/31/19 1114 I personally evaluated the patient and discussed the management with Dr. Walls. I agree with the History, Examination, Assessment and Plan documented above with any addition or exceptions noted below. Patient stable for discharge per Gen Surg.
[2019-08-31] MEDS: Famotidine 20 MG TAB PO SCH (08:11)
[2019-08-31] MEDS: Enoxaparin Sodium 30 MG/0.3 ML SYRINGE SC SCH (08:11)
[2019-08-31 13:58] VITALS: BP 110/74; TEMP 98.3
--- NOTE | 2019-08-31 14:17 | DIS ---
DATE OF ADMISSION: 08/25/2019 DATE OF DISCHARGE: 08/31/2019 DISCHARGE DIAGNOSES: 1. Bilateral pneumonia. 2. Gangrenous cholecystitis. HOSPITAL COURSE: The patient was admitted. She was found to have multiple gallstones, thickened gallbladder wall and a positive Hankins sign. However, she had bilateral pneumonias, fever, and suspicion of COVID-19. She was admitted and treated with antibiotics, awaiting COVID-19 testing. It took about 2-1/2 to almost 3 days to get the results back. When the results returned, they were negative for COVID-19. She was taken to surgery where she underwent a laparoscopic cholecystectomy with attempted cholangiogram. It was a gangrenous gallbladder. Postoperatively, she has done well. She did have a drop in her hemoglobin down to 8, but it is stable now. She was discharged home on hydrocodone, Zofran, and ciprofloxacin. She will follow up with me in 1 week. Job ID: [id number]
== END 2019-08-31 12:53 | disposition home or self-care (01) | DRG 417 ==
LOC: ERS 18:08 → T4-A 21:44
PROVIDERS: ADMIT Family Medicine; ATTEND Family Medicine
PROC: 8E0ZXY6 Isolation (ICD-10-PCS; 2019-08-25)
PROC: 0FT44ZZ Resection of Gallbladder, Percutaneous Endoscopic Approach (ICD-10-PCS; principal; 2019-08-28)
DX: K80.00 Calculus of gallbladder with acute cholecystitis without obstruction (principal); J18.9 Pneumonia, unspecified organism; E43 Unspecified severe protein-calorie malnutrition; Z20.828 Contact with and (suspected) exposure to other viral communicable diseases; K82.A1 Gangrene of gallbladder in cholecystitis; B96.20 Unspecified Escherichia coli [E. coli] as the cause of diseases classified elsewhere; Z68.30 Body mass index [BMI] 30.0-30.9, adult
CPT/HCPCS: 36415; 76000; 76705; 80048; 80053; 82728; 83615; 83735; 84100; 84145; 85025; 85379; 85610; 86140; 87070; 87077; 87186; 87205; 87449; 87633; 88304; 96361; 96365; 96367; J0456; J0696; J1100; J1650; J1885; J2001; J2270; J2405; J2543; J2704; J3010; J3490; Q0162; S0020; S0028

== ENCOUNTER 2019-09-04 11:27 | Outpatient (CLI) | payer OTHER, SELFPAY ==
--- NOTE | 2019-09-04 12:28 | RAD ---
CHEST 2 VIEWS: Date: 09/04/2019 HISTORY: Follow-up pneumonia. COMPARISON: Chest, abdomen, and pelvis CT dated 08/25/2019. FINDINGS: Persistent abnormal linear and parenchymal changes in the left lower mid lung zone, somewhat obliquel y noted, as well as some vertically oriented linear and parenchymal changes in the left lower lobe re trocardiac region. There are also some abnormal linear parenchymal changes in the right lower lobe shantal th horizontally positioned as well as vertically positioned medially and posteriorly. IMPRESSION: Persistent abnormal linear and interstitial parenchymal changes in both bases. This could well repres ent some persistent pneumonia/pneumonitis or possibly some persistent partial atelectasis. I would donahue ggest another follow-up exam in 3-4 weeks to document either clearing or stability at that time. POS: MAMIE
== END 2019-09-04 11:28 | disposition home or self-care (01) ==
LOC: RAD 11:27
PROVIDERS: ATTEND Surgery
DX: J18.9 Pneumonia, unspecified organism (principal); R91.8 Other nonspecific abnormal finding of lung field
CPT/HCPCS: 71046